=== PATIENT | male | born 1965 ===

== ENCOUNTER 2019-01-14 06:33 | Inpatient (IN) | payer OTHER ==
--- NOTE | 2018-12-28 09:17 | NUR ---
*-* CASE MANAGEMENT NOTES *-* DRAFTER ASSISTANT: NGUYEN HERNANDEZ (CONTACT FOR ADD'L DAY AND DISCHARGE PLANNING NEEDS). P:[phone] P:[phone]
[2019-01-07 13:02] LABS: BASOPHILS % (AUTO) 1.2 % (0.0-2.0); HEMATOCRIT 42.1 % (42.0-52.0); HEMOGLOBIN 13.9 G/DL (14.2-18.0); LYMPHOCYTES % (AUTO) 28.2 % (20.0-45.0); MEAN CORPUSCULAR VOLUME 90 FL (80-99); NEUTROPHILS % (AUTO) 59.5 % (45.0-75.0); PLATELET COUNT 274 K/UL (150-450); RED BLOOD COUNT 4.67 M/UL (4.70-6.10); RED CELL DISTRIBUTION WIDTH 13.2 % (11.6-14.8); WHITE BLOOD COUNT 7.3 K/UL (4.8-10.8)
[2019-01-07 13:27] LABS: ALANINE AMINOTRANSFERASE 15 U/L (12-78); ALBUMIN 4.4 G/DL (3.4-5.0); ALBUMIN/GLOBULIN RATIO 1.8 (1.0-2.7); ALKALINE PHOSPHATASE 81 U/L (46-116); ANION GAP 9 mmol/L (5-15); ASPARTATE AMINO TRANSFERASE 13 U/L (15-37); BILIRUBIN,TOTAL 0.8 MG/DL (0.2-1.0); BLOOD UREA NITROGEN 16 mg/dL (7-18); CALCIUM 9.5 MG/DL (8.5-10.1); CARBON DIOXIDE 28 MMOL/L (21-32); CHLORIDE 105 MMOL/L (98-107); CREATININE 1.5 MG/DL (0.55-1.30); SODIUM 142 MMOL/L (136-145)
[~2019-01-14] VITALS: Ht 165.1 cm; Wt 96.6 kg
[2019-01-14] VITALS (18 sets, daily range): BP systolic 115–132; BP diastolic 72–94
[2019-01-14] MEDS ORDERED: Duramorph PF 5mg/10ml amp ONE (07:07)
[2019-01-14] MEDS ORDERED: Midazolam 2mg/2ml Inj ONE (07:09)
[2019-01-14] MEDS ORDERED: fentaNYL 100 mcg/2 mL IV ONE ×2 (07:09→08:20)
--- NOTE | 2019-01-14 07:11 | Pre-Procedure Note/Attestation ---
Pre-Procedure Note/Attestation Complete Prior to Procedure Planned Procedure: right Procedure Narrative: For Right Total Knee Arthroplasty Indications for Procedure Pre-Operative Diagnosis: Degenerative Joint Disease, Right Knee Attestation I attest that I discussed the nature of the procedure; its benefits; risks and complications; and alternatives (and the risks and benefits of such alternatives ), prior to the procedure, with the patient (or the patient's legal customer development representative). I attest that, if there was a reasonable possibility of needing a blood transfusion, the patient (or the patient's legal customer development representative) was given the [facility] standardized written summary, pursuant to the [place] Blood Safety Act ([place] Health and Safety Code # 1645, as amended). I attest that I re-evaluated the patient just prior to the surgery and that there has been no change in the patient's H&P, except as documented below: Joseph Guerrero Jan 14, 2019 07:11
[2019-01-14] MEDS ORDERED: Bacitracin 50000 Units Vial ONE (07:12)
[2019-01-14] MEDS ORDERED: NeoSporin Gu Irrig 1ml Amp IRRIG ONE ×2 (07:12→08:42)
[2019-01-14] MEDS ORDERED: Propofol 200mg/20ml IV ONE (07:13)
[2019-01-14] MEDS ORDERED: Lidocaine 1% MPF 10mg/ml 5ml ONE (07:13)
[2019-01-14] MEDS ORDERED: OMEPRAZOLE40 M1 ORAL (07:14)
[2019-01-14] MEDS ORDERED: NORCO 5-325 TA1 EACH ORAL (07:14)
[2019-01-14] MEDS ORDERED: LISINOPRIL10 MG ORAL (07:14)
[2019-01-14] MEDS ORDERED: NS Irrig 1000ml IRRIG ONE ×3 (07:16→08:42)
[2019-01-14] MEDS ORDERED: Tranexamic Acid 1,000 MG in NS 55 ML IV ONE (07:30)
[2019-01-14] MEDS ORDERED: Sterile Water Irrig 1000ml IRRIG ONE (07:30)
[2019-01-14] MEDS ORDERED: NS Irrig 2000ml IRRIG ONE (07:30)
[2019-01-14] MEDS ORDERED: LR 1000ml ONE (07:30)
[2019-01-14] MEDS ORDERED: Bacitracin 50000 Units Vial IRRIG ONE (08:42)
[2019-01-14] MEDS ORDERED: Midazolam 2mg/2ml Inj IVP PRN (08:45)
[2019-01-14] MEDS ORDERED: Ketorolac 30mg Inj IV PRN (08:45)
[2019-01-14] MEDS ORDERED: Meperidine 50mg/ml Inj(FOR RIGORS ONLY) IV PRN (08:45)
[2019-01-14] MEDS ORDERED: DiphenhydrAMINE 50mg/ml Inj IVP PRN ×2 (08:45→11:15)
[2019-01-14] MEDS ORDERED: Hydromorphone 0.5mg/0.5ml inj IVP PRN (08:45)
[2019-01-14] MEDS ORDERED: LR 1000ml 1,000 ML IVLG SCH (08:45)
--- NOTE | 2019-01-14 08:45 | Anethesia Preoperative Eval ---
Anesthesia Pre-op PMH/ROS General Date of Evaluation: Jan 14, 2019 Time of Evaluation: 07:20 Anesthesiologist: Tori ASA Score: ASA 2 Mallampati Score Class I : Soft palate, uvula, fauces, pillars visible Class II: Soft palate, uvula, fauces visible Class III: Soft palate, base of uvula visible Class IV: Only hard plate visible Mallampati Classification: Class II Surgeon: Tobias Diagnosis: R knee DJD Surgical Procedure: R total knee arthroplasty Anesthesia History: none Family History: no anesthesia problems Allergies: Coded Allergies: No Known Allergies (Unverified , 01/11/19) Medications: see eMAR Patient NPO?: Yes NPO Date: Jan 13, 2019 NPO Time: 2358 Past Medical History Cardiovascular: Reports: HTN - stable on pills Pulmonary: Denies: asthma, COPD, LUIS, other Gastrointestinal/Genitourinary: Reports: GERD, CRI - high Cr follow up recomended; Denies: ESRD, other Neurologic/Psychiatric: Reports: depression/anxiety, other - chronic pain; Denies: dementia, CVA, TIA Endocrine: Denies: DM, hypothyroidism, steroids, other HEENT: Denies: cataract (L), cataract (R), glaucoma, TIMBI-SHA SHOSHONE (L), TIMBI-SHA SHOSHONE (R), other Hematology/Immune: Denies: anemia, DVT, bleeding disorder, other Musculoskeletal/Integumentary: Reports: DJD; Denies: OA, RA, DDD, edema, other Other: other - overweight PMH Narrative: as above PSxH Narrative: orchidectomy for testicular torsion, hernia repair, knee scope lumbar spine Sx. Anesthesia Pre-op Phys. Exam Physician Exam Last Vital Signs Date Time Temp Pulse Resp B/P (MAP) Pulse Ox O2 Delivery O2 Flow Rate FiO2 01/14/19 07:00 98.1 108 20 115/79 (91) 100 01/14/19 06:58 Room Air Constitutional: NAD Neurologic: CN 2-12 intact Cardiovascular: RRR, no M/R/G Respiratory: CTA Gastrointestinal: S/NT/ND Airway Exam Mallampati Score: Class II MO: limited Neck: short ROM: limited Teeth: missing Dentures: no upper, no lower Anesthesia Pre-op A/P Labs see chart Studies Pre-op Studies: EKG - NSR, CXR - WNL, echo - EF 55-60% Risk Assessment & Plan Assessment: ASA 2 Plan: SAB vs GA Status Change Before Surgery: No Pre-Antibiotics Drug: Ancef 2gr. Given Within 1 Hr of Incision: Yes Time Given: 08:20 Zeferino Valle MD Jan 14, 2019 08:45
[2019-01-14] MEDS ORDERED: Acetaminophen (Non formulary) 100 ML IV ONE (09:00)
[2019-01-14] MEDS ORDERED: HYDROmorphone 1mg/ml Carpuject SUBQ PRN (11:00)
[2019-01-14] MEDS ORDERED: HYDROcodone/Acetamin 7.5/325 tab ORAL PRN (11:00)
[2019-01-14] MEDS ORDERED: HYDROcodone/Acetamin 5/325 tab ORAL PRN ×2 (11:00→16:15)
--- NOTE | 2019-01-14 11:00 | Operative Note - PDOC ---
Operative Note Operative Note Pre-op Diagnosis: Degenerative Joint Disease, Right Knee Procedure: Right Total Knee Resurface Right Post-op Diagnosis: same as pre-op Operative Findings: consistent w/pre-op dx studies Surgeon: Tobias Front Office Supervisor: SIMA Guerrero Anesthesiologist: Tori Anesthesia: general Specimen: yes Complications: none Condition: stable Estimated Blood Loss: minimal Drains: hemovac Tourniquet time: 110 - min Implant(s) used?: Yes - Yenni Natural Knee Joseph Guerrero Jan 14, 2019 11:00
--- NOTE | 2019-01-14 11:01 | Immediate Post-Op Evaluation ---
Immediate Post-Op Evalulation Immediate Post-Op Evalulation Procedure: R total knee arthroplasty Date of Evaluation: Jan 14, 2019 Time of Evaluation: 11:00 IV Fluids: 1500 Blood Products: none Estimated Blood Loss: 150 Urinary Output: 100 Blood Pressure Systolic: 113 Blood Pressure Diastolic: 81 Pulse Rate: 102 Respiratory Rate: 22 O2 Sat by Pulse Oximetry: 99 Temperature (Fahrenheit): 98.2 Pain Score (1-10): 2 Nausea: No Vomiting: No Complications none Patient Status: reacts, patent, none Hydration Status: adequate Zeferino Valle MD Jan 14, 2019 11:01
[2019-01-14] MEDS ORDERED: PCA Education Pamphlet MISC SCH (11:15)
[2019-01-14] MEDS ORDERED: Naloxone 0.4mg/ml Inj IVP PRN (12:00)
[2019-01-14] MEDS ORDERED: Morphine Sulfate 2mg/ml Inj(IV/IM USE ONLY) IVP PRN (12:00)
[2019-01-14] MEDS ORDERED: Rate Change PCA 1 Each MISC PRN (12:00)
[2019-01-14] MEDS: PCA Morphine 1mg/ml 30 ML IV PRN ×2 (12:08→19:02)
--- NOTE | 2019-01-14 12:56 | NUR ---
NURSE NOTES: Received phone report from Adriana AUTOMOTIVE LIGHT MECHANIC.
[2019-01-14] MEDS: Docusate 100mg cap ORAL SCH ×2 (13:00→18:01)
[2019-01-14] MEDS: Acetaminophen 500mg (ES) tab ORAL SCH ×2 (13:00→18:01)
--- NOTE | 2019-01-14 13:05 | NUR ---
NURSE NOTES: Pt arrived the unit. Patient a/o x 4, in bed. Denies pain, no respiratory distress noted. Left wrist IV is patent. Right knee surgical site dressing is C/D/I. Ice pack applied. Hemovac is in placed. Unit orientation was given. Bed in lowest position and locked, call light within reach. Will continue to monitor.
--- NOTE | 2019-01-14 14:48 | NUR ---
CASE MANAGEMENT: INITIAL REVIEW 53 YO M PRESENTED TO HOSPITAL FOR SURGERY PMHx: HTN. ASTHMA. HERNIA. SI:PAIN RIGHT KNEE T 98.1 HR 108 RR 20 B/P 115/79 SATS 100% ON RA CR 1.5 GLU 117 AST 13 IS: OR MEDS PATIENT ADMITTED TO MED/SURG 01/14/2019 @ 1046 PLAN OF CARE: Operative Note Pre-op Diagnosis: Degenerative Joint Disease, Right Knee Procedure: Right Total Knee Resurface Right Post-op Diagnosis: same as pre-op
--- NOTE | 2019-01-14 14:56 | Diagnostic Imaging Report ---
Indications: Postoperative Technique: Two views of the knee Comparison: None Findings: Two postoperative views of the right knee demonstrate total knee arthroplasty, good anatomic alignment of the prosthesis. There is a surgical drain in place. . There is postsurgical soft tissue air. Overlying skin александр. Impression: Postoperative right knee, no unusual features.
[2019-01-14] MEDS: D5 1/2NS w/KCl 20mEq 1,000 ML IV SCH (15:21)
[2019-01-14] MEDS: ceFAZolin sod 1 GM in D5W 55 ML IV SCH ×2 (15:21→23:46)
--- NOTE | 2019-01-14 15:57 | NUR ---
NURSE NOTES: CPM started. Setting is 60. Patient is tolerating well.
--- NOTE | 2019-01-14 16:07 | NUR ---
NURSE NOTES: Dr. Stiles was notified regarding home meds. Dr. Stiles wants to continue [place] 5-325 q4 prn, Lisinopril 10mg daily, Omeprazole 40mg daily. Noted and carried out.
--- NOTE | 2019-01-14 16:45 | Operative Note - Dictated ---
DATE OF OPERATION: 01/14/2019 SURGEON: Joseph Collado M.D. ANESTHESIOLOGIST: Jovani Valle M.D. ANESTHESIA: General and spinal. RN ANESTHETIST: John Jaime PREOPERATIVE DIAGNOSIS: Tricompartmental traumatic arthritis right knee with significant varus weightbearing deformity and medial compartment joint space narrowing. POSTOPERATIVE DIAGNOSIS: Tricompartmental traumatic arthritis right knee with significant varus weightbearing deformity and medial compartment joint space narrowing. OPERATIVE PROCEDURE: Right knee resurfacing arthroplasty using a Yenni Natural Knee with a 0 cemented 7 mm all-polyethylene patella, a size 2 femoral component and a size 1 tibial component with a 9 mm congruent polyethylene and two 35 mm APR screws. The femoral and tibial components were both ingrowth. The procedure involved the lateral patellar retinacular release and realignment by ligament rebalancing. The patient was prepped and draped supine on the operating table. After induction of satisfactory spinal and general anesthesia, the right leg was positioned with a bolster behind the right hip to neutralize rotation of the knee. A bump was placed on the table to facilitate maintenance of the knee in flexion during procedure and a hip bump was used to prevent external rotation of the hip also during the procedure. The leg was examined with 10 degrees lacking in full extension and further flexion to 100 degrees. There was no ligamentous instability. No drawer and no Frantz's. No rotational instability. The patient was stable to varus and valgus stress. There was notable patellofemoral crepitus with moderate lateral patellar tracking. The leg was prepped and draped freely and then elevated and exsanguinated with an Esmarch bandage. A medial parapatellar incision was made along the distal quads expanse going along the medial border of the patella and inferior patella ligament to the tibial tuberosity. Incision was carried down through skin and subcutaneous tissue. The extensor apparatus was exposed. A medial capsular incision was made down to the tuberosity and through the distal quads tendon. Lateral retinacular release was accomplished so that the patella could be turned to 180 degrees exposing its articular surface. Remnants of the fat pad was removed and the anterior horn of both the medial and lateral meniscus was removed. The superficial medial collateral and posterior medial capsular ligaments were released to allow bouncing of the knee from its varus deformity. Also, the semimembranosus posteriorly was released from the tibia to facilitate extension. The patella was exposed. All the peripheral articular surfaces were defined by removing adherent surrounding synovium. The patella was sized and the minimal articular cut was made to leave most of the substance of the patella intact while creating a flat surface for implant of the polyethylene patella. A cutting jig was used and then 3 anchoring holes were made for a 0 all-poly patella. It was reduced and then checked for range of motion. The patella button was cemented in place with all excess cement removed after implants at the femoral and tibial components. The knee was then flexed and a bent knee retractor was used to pull the tibia floor to remove the remnants of the posterior horn of the medial lateral meniscus and to recess the PCL over the tibia on its lateral side. However, the main attachment of the PCL was left intact. The femoral medullary canal was then identified with a jig and an intramedullary herb was inserted. A cutting jig was then placed and weightbearing alignment of the hip and rotation were checked. The cut that was templated with the jig in place corresponded to that, which had been measured on the weightbearing x-rays prior to surgery. The distal cuff involved a little more medial than lateral. The anterior-posterior chamfer and notch cuts were then made. The trial femoral reduction revealed good contact on all cut surfaces with good stability and good alignment. Tibia was then subluxed forward and the tibial alignment jig was positioned. It was adjusted for weightbearing alignment and for slope as well as for varus and valgus. A measurement corresponded to the weightbearing x-ray was then chosen and the tibial cutting block was fixed over 2 drill holes and temporary pins. The proximal tibial cut was made with the appropriate slope and alignment taking a little more proximal tibia on the lateral side than medial. Once the cut surface was exposed, the trial tibia was placed and anchoring holes were made for the peripheral support and for the 2 central anchoring holes. The central punch was then used to create the cruciate support and a trial tibial component was then inserted along with a 9 mm polyethylene. This was templated with the femur in place and provided good stability, good range of motion, full extension, flexion to 110, good stability medial and lateral, and good patellar tracking. The tibial component was then tapped into place and 2 APR screws were used to secure it. Polyethylene was then inserted with no gap and the femoral component was also tapped into place. Again range of motion and stability were checked. The tourniquet was then released. Bleeders were coagulated. The medial capsule was closed with sutures of #1 Vicryl to the subcutaneous skin separately. The patient was placed in a bulky compression dressing and a medium Hemovac drain was left in the site of the lateral release, however, no suction was initially placed . The patient was returned to recovery room in good condition. Joseph Collado M.D. DR: CHINO JOB#: [id number] CC: KAYE
--- NOTE | 2019-01-14 18:55 | NUR ---
NURSE NOTES: Patient c/o pain on left knee, he is not tolerating. Removed CPM.
[2019-01-14] MEDS: PCA shift volume MISC SCH (19:00)
--- NOTE | 2019-01-14 19:48 | NUR ---
HAND-OFF: Report given to SHMUEL Guillen.
--- NOTE | 2019-01-14 20:00 | NUR ---
NURSE NOTES: Receive a report from SHMUEL Foley. Done rounds. Pt is asleep but easily awake by calling his name. On TURF AND GROUNDS SUPERVISOR, Morphine, for pain control. Right knee op site is wrapped with SHO without bleeding signs. Leave call light within reach. Will continue to monitor.
[2019-01-14] MEDS: oxyCONTIN 20mg tab ORAL SCH (20:30)
--- NOTE | 2019-01-14 21:30 | NUR ---
NURSE NOTES: Pt is asleep but easily aroused, alert. Breathing is even and non labored. BS sound intact 4 quadrants. Right knee pain persist but decrease after taking po medication a little bit. After administration of PRN Zofran 4mg IVP d/t nausea sense, pt feels better. Explain about S/E of [employer] medication. Pt verbalizes understanding. On horvath catheterization 16 fr. d/t op and patent with yellowish urine. Will continue to monitor.
[2019-01-15] VITALS: BP 95/60
--- NOTE | 2019-01-15 | NUR ---
NURSE NOTES: pt is asleep but easily awake, alert. Spo2 checked as 92% in RA. Lung sound is clear but decreased on both lower lung. Encourage to deep breathing and apply O2 2L/min via NC. Spo2 goes up to 95-96%. Keep Semi-Sheldon's position. BP: 95.60mmHg, SD: 109 bmp. No GUTIERREZ or dizziness noted. Op site is clear without bleeding signs. Hemovac inserted state and serosanguineous drainage drained. Will continue to monitor.
[2019-01-15 04:00] VITALS: BP 116/73
[2019-01-15] MEDS: D5 1/2NS w/KCl 20mEq 1,000 ML IV SCH (04:48)
--- NOTE | 2019-01-15 06:50 | NUR ---
NURSE NOTES: Nausea sensation gets better after prn Zofran 4mg IVP. Pain continue but intensity gets decreased than yesterday with GOLF STUD RIVETER, Morphine. Op site is clear without bleeding sign. Empty Hemovac total 190ml, bloody color drainage. Spo2 checked 97 % with O2 2L/min NC. Will continue to monitor.
[2019-01-15] MEDS: PCA shift volume MISC SCH ×2 (07:00→19:00)
[2019-01-15 07:12] LABS: BASOPHILS % (AUTO) 0.5 % (0.0-2.0); HEMATOCRIT 29.6 % (42.0-52.0); LYMPHOCYTES % (AUTO) 12.6 % (20.0-45.0); MEAN CORPUSCULAR VOLUME 91 FL (80-99); PLATELET COUNT 173 K/UL (150-450); RED BLOOD COUNT 3.25 M/UL (4.70-6.10)
--- NOTE | 2019-01-15 07:47 | NUR ---
HAND-OFF: Report given to SHMUEL Baker. Done rounds.
--- NOTE | 2019-01-15 07:50 | NUR ---
NURSE NOTES: Patient is in bed awake and able to verbalize needs. Stable. COmplains of pain, patient encouraged to use DOUGH PUNCHER as ordered. Patient is encouraged to use call light for assistance, verbalized understanding. Patient is in bed in locked and lowest position with call light within reach. Will continue to monitor.
[2019-01-15 08:00] VITALS: BP 112/73
[2019-01-15] MEDS: oxyCONTIN 20mg tab ORAL SCH ×2 (08:19→20:58)
[2019-01-15] MEDS: ceFAZolin sod 1 GM in D5W 55 ML IV SCH ×3 (08:19→23:48)
[2019-01-15] MEDS: Lisinopril 10mg tab ORAL SCH (08:19)
[2019-01-15] MEDS: Acetaminophen 500mg (ES) tab ORAL SCH ×3 (08:20→18:10)
[2019-01-15] MEDS: Docusate 100mg cap ORAL SCH ×3 (08:20→18:11)
--- NOTE | 2019-01-15 08:46 | General Progress Note ---
Assessment/Plan Assessment/Plan: Right knee resurfacing arthroplasty right knee arthritis postop pain PLAN 1. incentive spirometry 2. Lovenox 3. PT evaluation and therapy 4. Hydration 5. Pain management 6. discharge once stable with outpatient follow up Subjective Allergies: Coded Allergies: No Known Allergies (Unverified , 01/11/19) Subjective care noted asked to follow up post op Objective Last 24 Hour Vital Signs Date Time Temp Pulse Resp B/P (MAP) Pulse Ox O2 Delivery O2 Flow Rate FiO2 01/15/19 08:19 112/73 01/15/19 04:00 97.8 103 19 116/73 (87) 97 01/15/19 04:00 18 01/15/19 00:00 18 01/15/19 00:00 98.6 109 18 95/60 (72) 95 01/14/19 21:00 Room Air 01/14/19 20:00 97.6 93 18 127/88 (101) 96 01/14/19 20:00 18 01/14/19 16:35 98.2 79 20 117/72 (87) 97 01/14/19 16:00 18 01/14/19 15:35 97.1 93 19 130/93 (105) 97 01/14/19 14:35 98.7 94 18 131/94 (106) 100 01/14/19 13:35 97.2 95 21 132/89 (103) 96 01/14/19 13:05 97.6 99 18 127/80 (96) 100 01/14/19 13:00 98.6 95 19 131/85 100 Nasal Cannula 2.0 01/14/19 12:58 18 01/14/19 12:45 96 20 132/86 98 Nasal Cannula 2.0 01/14/19 12:38 98.6 01/14/19 12:30 98 19 123/84 98 Nasal Cannula 2.0 01/14/19 12:15 99 20 122/85 97 Nasal Cannula 2.0 01/14/19 12:00 97 19 119/86 97 Nasal Cannula 2.0 01/14/19 11:45 98 20 121/87 98 Nasal Cannula 2.0 01/14/19 11:30 99 18 132/84 100 Simple Mask 6.0 01/14/19 11:15 100 19 121/91 100 Simple Mask 6.0 01/14/19 11:06 102 20 130/88 100 Simple Mask 6.0 01/14/19 11:01 103 20 120/88 100 Simple Mask 6.0 01/14/19 11:01 102 22 99 01/14/19 10:56 98.7 104 22 120/83 100 Simple Mask 6.0 01/14/19 09:00 98.6 Intake and Output 01/14/19 01/15/19 19:00 07:00 Intake Total 1638 ml 1075 ml Output Total 690 ml 815 ml Balance 948 ml 260 ml Intake Oral 238 ml 200 ml IV Total 1400 ml 875 ml Output Urine Total 430 ml 625 ml Drainage Total 260 ml 190 ml # Voids 1 Laboratory Tests 01/15/19 05:20: White Blood Count 11.0H, Red Blood Count 3.25L, Hemoglobin 10.0L, Hematocrit 29.6L, Mean Corpuscular Volume 91, Mean Corpuscular Hemoglobin 31.0, Mean Corpuscular Hemoglobin Concent 33.9, Red Cell Distribution Width 13.0, Platelet Count 173, Mean Platelet Volume 6.3L, Neutrophils (%) (Auto) 74.0, Lymphocytes ( %) (Auto) 12.6L, Monocytes (%) (Auto) 11.0H, Eosinophils (%) (Auto) 2.0, Basophils (%) (Auto) 0.5 Height (Feet): 5 Height (Inches): 5.00 Weight (Pounds): 192 Objective WDWN NAD clear breath sounds bilaterally without rhonchi or wheeze [id number] without MRG NABS nontender no HSM no CCE nonfocal Raffi Stiles MD Jan 15, 2019 08:46
--- NOTE | 2019-01-15 09:00 | NUR ---
PT EVALUATION NOTE Patient seen for initial evaluation, see complete evaluation for details. Patient presents with limited functional mobility and pain s/p R TKA. Patient will benefit from skilled inpatient PT intervention to address strength, ROM, safety and functional mobility with appropriate assistive device. Recommend discharge to SNF for further rehab vs home with home PT depending on patient's progress once medically cleared by MD. Patient lives in second floor apartment, has 12-14 stairs to negotiate to access apartment. Patient has FWW at home, may also benefit from raised toilet seat. Addendum: 01/15/19 at 0955 by SPENCER SHIELDS PT Amended: Links added.
--- NOTE | 2019-01-15 09:04 | 48 Hour Post Anesthesia Eval ---
Post Anesthesia Evaluation Procedure: R total knee arthroplasty Date of Evaluation: Jan 15, 2019 Time of Evaluation: 09:02 Blood Pressure Systolic: 125 0: 76 Pulse Rate: 72 Respiratory Rate: 22 Temperature (Fahrenheit): 97.7 O2 Sat by Pulse Oximetry: 98 Airway: patent Nausea: No Vomiting: No Pain Intensity: 3 Hydration Status: adequate Cardiopulmonary Status: stable Mental Status/LOC: patient returned to baseline Follow-up Care/Observations: n/a Post-Anesthesia Complications: none Follow-up care needed: N/A Zeferino Valle MD Jan 15, 2019 09:04
[2019-01-15] MEDS: Enoxaparin 40mg Inj SUBQ SCH (09:20)
[2019-01-15 11:50] VITALS: BP 111/73
--- NOTE | 2019-01-15 12:42 | NUR ---
CASE MANAGEMENT:REVIEW 01/15/19 SI: POD #1 RT KNEE RESURFACING ARTHROPLASTY 99.8 126 18 112/73 98% ON RA WBC+11.0 H/H-10.0/29.6 IS: IV ANCEF Q8HRS LISINOPRIL PO QD IV ANCEF Q8HR MORPHINE LIP CUTTER AND SCORER : MED/SURG STATUS 3 EAST PLAN: REFER TO ACUTE REHAB FOR RECOVERY
--- NOTE | 2019-01-15 12:51 | NUR ---
DISCHARGE PLANNING CALLED FIBERGLASS FABRICATOR: NGUYEN HERNANDEZ P:[phone] P:[phone] REQUESTED ARU PLACEMENT RFA FORM FAXED TO JOSEFA FROM DR GAFFENY'S OFFICE WILL PROBABLY TAKE A DAY OR TWO FOR APPROVAL *WHEN [employer] GOES OUT OF TOWN PLEASE CONTACT BELKIS T: [phone]
--- NOTE | 2019-01-15 15:46 | NUR ---
INSURANCE UPDATED CLINICALS and REVIEW HAVE BEEN FAXED PLEASE FAX THE REVIEW AND CLINICAL TO CALLED MILK RECEIVER: NGUYEN HERNANDEZ P:[phone] P:[phone] F: [phone]
[2019-01-15 16:14] VITALS: BP 89/52
--- NOTE | 2019-01-15 17:29 | NUR ---
NURSE NOTES: F/C d/c as ordered. tolerated well. Patient verbalized that he will call RN when needing to void.
--- NOTE | 2019-01-15 17:30 | NUR ---
HAND-OFF: Report given to Mya MI. Patient is stable.
--- NOTE | 2019-01-15 17:45 | NUR ---
NURSE NOTES: Received report from Olivia MI. Patient is awake and oriented, no acute distress noted, reporting pain is well managed at this time, VOCATIONAL ED INSTRUCTOR settings checked and verified against order, hemovac compressed. All needs met at this time. Will continue to monitor.
--- NOTE | 2019-01-15 19:30 | NUR ---
HAND-OFF: Report given to Florentino MI. Patient is in stable condition.
--- NOTE | 2019-01-15 19:30 | NUR ---
NURSE NOTES: Endorsed to cutting supervisor nurse that patient has not yet voided following horvath removal.
[2019-01-15] MEDS: PCA Morphine 1mg/ml 30 ML IV PRN (19:44)
[2019-01-15 20:00] VITALS: BP 87/55
--- NOTE | 2019-01-15 20:08 | NUR ---
NURSE NOTES: Received patient awake,alert, verbal,resting in bed, wound dressing dry and intact with esther wrap on.
[2019-01-16 04:00] VITALS: BP 89/48
[2019-01-16] MEDS: PCA shift volume MISC SCH (07:05)
--- NOTE | 2019-01-16 07:23 | NUR ---
HAND-OFF: Report given to Olivia Adrian RN.
[2019-01-16 07:24] LABS: BASOPHILS % (AUTO) 0.4 % (0.0-2.0); EOSINOPHILS % (AUTO) 1.7 % (0.0-3.0); HEMATOCRIT 25.2 % (42.0-52.0); HEMOGLOBIN 8.7 G/DL (14.2-18.0); LYMPHOCYTES % (AUTO) 9.5 % (20.0-45.0); MEAN CORPUSCULAR VOLUME 91 FL (80-99); MONOCYTES % (AUTO) 8.9 % (1.0-10.0); NEUTROPHILS % (AUTO) 79.5 % (45.0-75.0); PLATELET COUNT 173 K/UL (150-450); RED BLOOD COUNT 2.77 M/UL (4.70-6.10); RED CELL DISTRIBUTION WIDTH 13.2 % (11.6-14.8); WHITE BLOOD COUNT 15.1 K/UL (4.8-10.8)
--- NOTE | 2019-01-16 07:30 | NUR ---
NURSE NOTES: Patient is in bed awake and able to verbalize needs. Stable. Denies severe pain, patient verbalized that he will use INSPECTOR WEIGHTS AND MEASURES as needed. Patient encouraged to use call light for assistance, verbalized understanding. Patient is in bed in locked and lowest position with call light within reach. Will continue to monitor.
[2019-01-16 08:00] VITALS: BP 77/48
[2019-01-16] MEDS: ceFAZolin sod 1 GM in D5W 55 ML IV SCH ×3 (08:21→23:44)
[2019-01-16] MEDS: Enoxaparin 40mg Inj SUBQ SCH (08:23)
[2019-01-16] MEDS: Acetaminophen 500mg (ES) tab ORAL SCH ×3 (08:24→17:58)
[2019-01-16] MEDS: oxyCONTIN 20mg tab ORAL SCH ×2 (08:24→21:10)
[2019-01-16] MEDS: Docusate 100mg cap ORAL SCH ×3 (08:25→17:58)
[2019-01-16] MEDS: Lisinopril 10mg tab ORAL SCH (08:57)
--- NOTE | 2019-01-16 09:15 | NUR ---
NURSE NOTES: Patient's bp is 77/48, pulse 119. Dr. Stiles aware. 1L NS bolus running as ordered. Patient is stable.
--- NOTE | 2019-01-16 09:53 | NUR ---
CASE MANAGEMENT:REVIEW 01/16/19 SI: POD #2 RT KNEE RESURFACING ARTHROPLASTY 99.1 100 18 89/48 92% ON RA WBC+15.1 H/H-8.7/25.2 IS: IV ANCEF Q8HRS LISINOPRIL PO QD IV ANCEF Q8HR MORPHINE HOME ECONOMIST LOVENOX : MED/SURG STATUS 3 EAST PLAN: REFER TO ACUTE REHAB FOR RECOVERY
--- NOTE | 2019-01-16 10:20 | General Progress Note ---
Assessment/Plan Assessment/Plan: Right knee resurfacing arthroplasty right knee arthritis postop pain PLAN 1. incentive spirometry 2. Lovenox 3. PT evaluation and therapy 4. Hydration; bolus; hold antihypertensives 5. Pain management 6. discharge once stable with outpatient follow up Subjective Allergies: Coded Allergies: No Known Allergies (Unverified , 01/11/19) Subjective care noted hypotensive this am Objective Last 24 Hour Vital Signs Date Time Temp Pulse Resp B/P (MAP) Pulse Ox O2 Delivery O2 Flow Rate FiO2 01/16/19 04:00 99.1 100 18 89/48 (62) 92 01/16/19 04:00 18 01/16/19 00:00 16 01/15/19 21:28 98.6 01/15/19 21:20 Room Air 01/15/19 20:14 98.6 01/15/19 20:00 98.6 105 18 87/55 (66) 95 01/15/19 19:51 18 01/15/19 16:14 98.6 105 18 89/52 (64) 97 01/15/19 16:00 18 01/15/19 12:00 18 01/15/19 11:50 98.5 100 18 111/73 (86) 96 Intake and Output 01/15/19 01/16/19 19:00 07:00 Intake Total 620 ml 455 ml Output Total 770 ml 25 ml Balance -150 ml 430 ml Intake Oral 620 ml 400 ml IV Total 55 ml Output Urine Total 700 ml Drainage Total 70 ml 25 ml # Voids 4 Laboratory Tests 01/16/19 05:41: White Blood Count 15.1H, Red Blood Count 2.77L, Hemoglobin 8.7L, Hematocrit 25.2L, Mean Corpuscular Volume 91, Mean Corpuscular Hemoglobin 31.3H, Mean Corpuscular Hemoglobin Concent 34.4, Red Cell Distribution Width 13.2, Platelet Count 173, Mean Platelet Volume 6.8, Neutrophils (%) (Auto) 79.5H, Lymphocytes ( %) (Auto) 9.5L, Monocytes (%) (Auto) 8.9, Eosinophils (%) (Auto) 1.7, Basophils (%) (Auto) 0.4 Height (Feet): 5 Height (Inches): 5.00 Weight (Pounds): 220 Objective WDWN NAD clear breath sounds bilaterally without rhonchi or wheeze [id number] without MRG NABS nontender no HSM no CCE nonfocal Raffi Stiles MD Jan 16, 2019 10:20
[2019-01-16 12:00] VITALS: BP 104/69
--- NOTE | 2019-01-16 13:30 | NUR ---
NURSE NOTES: Patient no longer on PERMASTONE MECHANIC. Remaining medication and tubing returned to pharmacist Nikita.
--- NOTE | 2019-01-16 14:58 | General Surgery Progress Note ---
General Surgery-Progress Note Subjective Procedure Performed Right Total Knee Resurface Right Symptoms: improved Objective Last 24 Hour Vital Signs Date Time Temp Pulse Resp B/P (MAP) Pulse Ox O2 Delivery O2 Flow Rate FiO2 01/16/19 12:00 18 01/16/19 12:00 99.9 113 16 104/69 (81) 93 01/16/19 09:00 Room Air 01/16/19 08:00 99.9 119 18 77/48 (58) 94 01/16/19 08:00 18 01/16/19 04:00 99.1 100 18 89/48 (62) 92 01/16/19 04:00 18 01/16/19 00:00 16 01/15/19 21:28 98.6 01/15/19 21:20 Room Air 01/15/19 20:14 98.6 01/15/19 20:00 98.6 105 18 87/55 (66) 95 01/15/19 19:51 18 01/15/19 16:14 98.6 105 18 89/52 (64) 97 01/15/19 16:00 18 I&O Intake and Output 01/15/19 01/16/19 19:00 07:00 Intake Total 620 ml 455 ml Output Total 770 ml 25 ml Balance -150 ml 430 ml Intake Oral 620 ml 400 ml IV Total 55 ml Output Urine Total 700 ml Drainage Total 70 ml 25 ml # Voids 4 Dressing: dry Wound: clean Drains: hemovac Laboratory Tests Test 01/16/19 05:41 White Blood Count 15.1 K/UL (4.8-10.8) H Red Blood Count 2.77 M/UL (4.70-6.10) L Hemoglobin 8.7 G/DL (14.2-18.0) L Hematocrit 25.2 % (42.0-52.0) L Mean Corpuscular Volume 91 FL (80-99) Mean Corpuscular Hemoglobin 31.3 PG (27.0-31.0) H Mean Corpuscular Hemoglobin Concent 34.4 G/DL (32.0-36.0) Red Cell Distribution Width 13.2 % (11.6-14.8) Platelet Count 173 K/UL (150-450) Mean Platelet Volume 6.8 FL (6.5-10.1) Neutrophils (%) (Auto) 79.5 % (45.0-75.0) H Lymphocytes (%) (Auto) 9.5 % (20.0-45.0) L Monocytes (%) (Auto) 8.9 % (1.0-10.0) Eosinophils (%) (Auto) 1.7 % (0.0-3.0) Basophils (%) (Auto) 0.4 % (0.0-2.0) Imaging X-ray Post Op Right knee: good position of implants Additional Comments wound clean and dry drain output decreasing Assessment Additional Comments PT/OT working with patient. Dr. Stiles following. Patient has NO stable living arrangements and will need Rehab and possible temporary housing to [facility]. Park Aide and our office working on this. Joseph Guerrero Jan 16, 2019 14:58
[2019-01-16 16:00] VITALS: BP 99/55
--- NOTE | 2019-01-16 19:30 | NUR ---
NURSE NOTES: Patient refused CPM. Patient stated that he will try to do it tomorrow.
--- NOTE | 2019-01-16 19:40 | NUR ---
NURSE NOTES: Received report from SHMUEL Baker and rounds made with out going nurse. Received pt lying in bed, AOX4, pain level 7/10, pain medication not yet due. Surgical dressing C/D/I. Hemovac inplace with serosangenous drainage. Applied ice pack to surgical site. IV L wrist patent and intact. Pt refused SCD. Bed in lowest position and locked, side rails up x 2, call light within reach. Will continue to monitor.
--- NOTE | 2019-01-16 19:52 | NUR ---
HAND-OFF: Report given to Andry MI. Patient is stable.
[2019-01-16 20:00] VITALS: BP 96/61
[2019-01-17] VITALS (7 sets, daily range): BP systolic 88–110; BP diastolic 54–71
[2019-01-17 06:37] LABS: BASOPHILS % (AUTO) 0.5 % (0.0-2.0); EOSINOPHILS % (AUTO) 2.3 % (0.0-3.0); HEMATOCRIT 23.8 % (42.0-52.0); HEMOGLOBIN 8.1 G/DL (14.2-18.0); LYMPHOCYTES % (AUTO) 11.1 % (20.0-45.0); MEAN CORPUSCULAR VOLUME 91 FL (80-99); MONOCYTES % (AUTO) 9.7 % (1.0-10.0); NEUTROPHILS % (AUTO) 76.5 % (45.0-75.0); PLATELET COUNT 184 K/UL (150-450); RED BLOOD COUNT 2.62 M/UL (4.70-6.10); RED CELL DISTRIBUTION WIDTH 12.9 % (11.6-14.8); WHITE BLOOD COUNT 12.6 K/UL (4.8-10.8)
[2019-01-17 06:57] LABS: ANION GAP 8 mmol/L (5-15); BLOOD UREA NITROGEN 19 mg/dL (7-18); CALCIUM 8.2 MG/DL (8.5-10.1); CARBON DIOXIDE 25 MMOL/L (21-32); CHLORIDE 106 MMOL/L (98-107); CREATININE 1.5 MG/DL (0.55-1.30); POTASSIUM 4.3 MMOL/L (3.5-5.1); SODIUM 139 MMOL/L (136-145)
--- NOTE | 2019-01-17 07:15 | NUR ---
NURSE NOTES: Report received from Andry Hoskins RN, rounds made. Patient resting in supine position in bed. Alert, oriented x4, calm. LW heplock intact. Pain to right knee 01/09, will medicate as ordered. No distress on RA. CMS + to RLE, warm, wiggles, +1 pitting edema noted, no NT, dressing CDI, hemovac in place. Call light in reach, bed in lowest position, will continue to monitor. Addendum: 01/17/19 at 0902 by Cherrie Morales RN Ice pack to right knee as ordered.
--- NOTE | 2019-01-17 07:29 | NUR ---
HAND-OFF: Report given to SHMUEL Grier. Pt in stable condition.
[2019-01-17] MEDS: ceFAZolin sod 1 GM in D5W 55 ML IV SCH (08:39)
[2019-01-17] MEDS: Docusate 100mg cap ORAL SCH ×3 (08:42→18:52)
[2019-01-17] MEDS: Enoxaparin 40mg Inj SUBQ SCH (08:43)
[2019-01-17] MEDS: Acetaminophen 500mg (ES) tab ORAL SCH ×3 (08:46→18:52)
[2019-01-17] MEDS: oxyCONTIN 20mg tab ORAL SCH ×2 (08:47→21:17)
[2019-01-17] MEDS: Lisinopril 10mg tab ORAL SCH (08:47)
--- NOTE | 2019-01-17 09:11 | General Progress Note ---
Assessment/Plan Assessment/Plan: Right knee resurfacing arthroplasty right knee arthritis postop pain post op anemia mild renal insufficiency PLAN 1. incentive spirometry 2. Lovenox 3. PT evaluation and therapy 4. Hydration; bolus; hold antihypertensives 5. Pain management 6. discharge once stable with outpatient follow up 7. iv iron Subjective Allergies: Coded Allergies: No Known Allergies (Unverified , 01/11/19) Subjective care noted improved hemodynamics Objective Last 24 Hour Vital Signs Date Time Temp Pulse Resp B/P (MAP) Pulse Ox O2 Delivery O2 Flow Rate FiO2 01/17/19 08:47 89/55 01/17/19 08:40 128 89/55 (66) 01/17/19 08:00 99.4 120 18 103/64 (77) 94 01/17/19 04:00 98.7 71 16 88/59 (69) 98 01/17/19 00:00 98.4 77 16 88/54 (65) 100 01/16/19 21:00 Room Air 01/16/19 20:00 100.4 108 16 96/61 (73) 94 01/16/19 16:00 97.9 123 18 99/55 (70) 100 01/16/19 12:00 18 01/16/19 12:00 99.9 113 16 104/69 (81) 93 Intake and Output 01/16/19 01/17/19 19:00 07:00 Intake Total 55 ml Output Total 10 ml 2115 ml Balance -10 ml -2060 ml IV Total 55 ml Output Urine Total 2100 ml Drainage Total 10 ml 15 ml # Voids 2 Laboratory Tests 01/17/19 05:45: White Blood Count 12.6H, Red Blood Count 2.62L, Hemoglobin 8.1L, Hematocrit 23.8L, Mean Corpuscular Volume 91, Mean Corpuscular Hemoglobin 30.8, Mean Corpuscular Hemoglobin Concent 34.0, Red Cell Distribution Width 12.9, Platelet Count 184, Mean Platelet Volume 5.5L, Neutrophils (%) (Auto) 76.5H, Lymphocytes (%) (Auto) 11.1L, Monocytes (%) (Auto) 9.7, Eosinophils (%) (Auto) 2.3, Basophils (%) (Auto) 0.5, Sodium Level 139, Potassium Level 4.3, Chloride Level 106, Carbon Dioxide Level 25, Anion Gap 8, Blood Urea Nitrogen 19H, Creatinine 1.5H, Estimat Glomerular Filtration Rate 49.1, Glucose Level 101, Calcium Level 8.2L Height (Feet): 5 Height (Inches): 5.00 Weight (Pounds): 220 Objective WDWN NAD clear breath sounds bilaterally without rhonchi or wheeze [id number] without MRG NABS nontender no HSM no CCE nonfocal Raffi Stiles MD Jan 17, 2019 09:11
[2019-01-17 10:10] LABS: % IRON SATURATION 9 % (15-50); IRON 19 ug/dL (50-175); TOTAL IRON BINDING CAPACITY 203 ug/dL (250-450)
[2019-01-17 10:31] LABS: FERRITIN 188 NG/ML (8-388)
--- NOTE | 2019-01-17 10:54 | General Surgery Progress Note ---
General Surgery-Progress Note Subjective Procedure Performed Right Total Knee Resurface Right Symptoms: improved Objective Last 24 Hour Vital Signs Date Time Temp Pulse Resp B/P (MAP) Pulse Ox O2 Delivery O2 Flow Rate FiO2 01/17/19 08:47 89/55 01/17/19 08:40 128 89/55 (66) 01/17/19 08:00 99.4 120 18 103/64 (77) 94 01/17/19 04:00 98.7 71 16 88/59 (69) 98 01/17/19 00:00 98.4 77 16 88/54 (65) 100 01/16/19 21:00 Room Air 01/16/19 20:00 100.4 108 16 96/61 (73) 94 01/16/19 16:00 97.9 123 18 99/55 (70) 100 01/16/19 12:00 18 01/16/19 12:00 99.9 113 16 104/69 (81) 93 I&O Intake and Output 01/16/19 01/17/19 19:00 07:00 Intake Total 55 ml Output Total 10 ml 2115 ml Balance -10 ml -2060 ml IV Total 55 ml Output Urine Total 2100 ml Drainage Total 10 ml 15 ml # Voids 2 Dressing: dry Wound: clean Drains: hemovac Laboratory Tests Test 01/17/19 05:45 White Blood Count 12.6 K/UL (4.8-10.8) H Red Blood Count 2.62 M/UL (4.70-6.10) L Hemoglobin 8.1 G/DL (14.2-18.0) L Hematocrit 23.8 % (42.0-52.0) L Mean Corpuscular Volume 91 FL (80-99) Mean Corpuscular Hemoglobin 30.8 PG (27.0-31.0) Mean Corpuscular Hemoglobin Concent 34.0 G/DL (32.0-36.0) Red Cell Distribution Width 12.9 % (11.6-14.8) Platelet Count 184 K/UL (150-450) Mean Platelet Volume 5.5 FL (6.5-10.1) L Neutrophils (%) (Auto) 76.5 % (45.0-75.0) H Lymphocytes (%) (Auto) 11.1 % (20.0-45.0) L Monocytes (%) (Auto) 9.7 % (1.0-10.0) Eosinophils (%) (Auto) 2.3 % (0.0-3.0) Basophils (%) (Auto) 0.5 % (0.0-2.0) Sodium Level 139 MMOL/L (136-145) Potassium Level 4.3 MMOL/L (3.5-5.1) Chloride Level 106 MMOL/L (98-107) Carbon Dioxide Level 25 MMOL/L (21-32) Anion Gap 8 mmol/L (5-15) Blood Urea Nitrogen 19 mg/dL (7-18) H Creatinine 1.5 MG/DL (0.55-1.30) H Estimat Glomerular Filtration Rate 49.1 mL/min (>60) Glucose Level 101 MG/DL (74-106) Calcium Level 8.2 MG/DL (8.5-10.1) L Iron Level 19 ug/dL (50-175) L Total Iron Binding Capacity 203 ug/dL (250-450) L Percent Iron Saturation 9 % (15-50) L Unsaturated Iron Binding 184 ug/dL (112-346) Ferritin 188 NG/ML (8-388) Additional Comments drain removed today, october D/C Ancef. slow progress with PT / OT Dr. Stiles following, Assessment Post-op Diagnosis Patient is NOT able to discharge to home. He has No Stable housing to recover in. Needs Rehab and possible temporary housing. Request kaitlynn to insurance carrier 7 Joseph Guerrero Jan 17, 2019 10:54
--- NOTE | 2019-01-17 13:24 | NUR ---
DISCHARGE PLANNING SECOND CALL PLACED TO COVERING COMMODITY MANAGER, GUY T: [phone] *REQUESTED AR RETURN PHONE CALL YESTERDAY AND AGAIN TODAY NEED APPROVAL FOR ACUTE REHAB CALLED COMMODITY MANAGER: NGUYEN HERNANDEZ P:[phone] P:[phone] REQUESTED ARU PLACEMENT RFA FORM FAXED TO COMMODITY MANAGER FROM DR GAFFNEY'S OFFICE WILL PROBABLY TAKE A DAY OR TWO FOR APPROVAL *WHEN [employer] GOES OUT OF TOWN PLEASE CONTACT GUY T: [phone]
--- NOTE | 2019-01-17 13:27 | NUR ---
CASE MANAGEMENT:REVIEW 01/17/19 SI: POD #3 RT KNEE RESURFACING ARTHROPLASTY 99.4 120 18 99/66 95% ON RA WBC+12.6 H/H-8.1/23.8 BUN+19 CR+1.5 IS: IV VENOFER QHS PROTONIX PO QD LOVENOX SQ QD OXYCONTIN PO Q12 : MED/SURG STATUS 3 [facility] PLAN: REFER TO ACUTE REHAB FOR RECOVERY TWO MESSAGES LEFT FOR EDUCATION SALES CONSULTANT CASE MANAGEMENT:REVIEW 01/16/19 SI: POD #2 RT KNEE RESURFACING ARTHROPLASTY 99.1 100 18 89/48 92% ON RA WBC+15.1 H/H-8.7/25.2 IS: IV ANCEF Q8HRS LISINOPRIL PO QD IV ANCEF Q8HR MORPHINE ADULT EDUCATION PROFESSIONAL LOVENOX : MED/SURG STATUS 3 [facility] PLAN: REFER TO ACUTE REHAB FOR RECOVERY RFA WAS COMPLETED AND FAXED ON Monday01/14/19 TWO MESSAGES LEFT FOR EDUCATION SALES CONSULTANT, GUY T: [phone]
--- NOTE | 2019-01-17 13:30 | NUR ---
PT NOTE Attempted to see patient for PT treatment. Patient declining to participate with PT, c/o not feeling well. Cherrie MI notified, will follow up in the a.m.
--- NOTE | 2019-01-17 13:50 | NUR ---
NURSE NOTES: Dr. Thompson notified of low blood pressure and high heart rate readings. This AM 89/55 128 Prior to PT 107/72 135 After PT 106/71 136 93% on RA At 12 p 99/66 116 Parameters for Zestril received, see updated order.
[2019-01-17] MEDS ORDERED: NS 500ML ONE (17:26)
--- NOTE | 2019-01-17 19:55 | NUR ---
HAND-OFF: Report given to Andry Hoskins RN.
--- NOTE | 2019-01-17 20:48 | NUR ---
NURSE NOTES: Received report SHMUEL Grier and rounds made with outgoing nurse. Received pt lying in bed, AOX4, pain level 5/10, pain medication not yet due, no distress noted. R knee dressing C/D/I. IV L wrist patent and intact. Bed in lowest position and locked, side rails up x 2, call light within reach. Will continue to monitor.
[2019-01-17] MEDS: Iron Sucrose 100 MG in NS 55 ML IV SCH (21:09)
[2019-01-18] VITALS: BP 130/74
[2019-01-18 05:35] VITALS: BP 103/64
--- NOTE | 2019-01-18 06:11 | NUR ---
NURSE NOTES: Refused dressing change to right knee. Pt states "I want it done after breakfast". Will endorse to next nurse.
--- NOTE | 2019-01-18 07:10 | NUR ---
NURSE NOTES: Report received from Andry Hoskins RN, rounds made. Patient resting in supine position in bed. Patient alert, oriented x4 calm, no distress on RA, pain 7/10 to right knee, ice pack in place, will medicate as scheduled. LW heplock intact. Right knee dressing esther wrap, CDI, will change as ordered. Call light in reach, bed in lowest position, will continue to monitor.
--- NOTE | 2019-01-18 07:38 | NUR ---
HAND-OFF: Report given to SHMUEL Grier. Pt in stable condition.
[2019-01-18 08:00] VITALS: BP 98/59
[2019-01-18] MEDS: Lisinopril 10mg tab ORAL SCH (09:00)
[2019-01-18] MEDS: Docusate 100mg cap ORAL SCH ×3 (10:42→19:05)
[2019-01-18] MEDS: Enoxaparin 40mg Inj SUBQ SCH (10:43)
[2019-01-18] MEDS: Acetaminophen 500mg (ES) tab ORAL SCH ×3 (10:44→19:05)
[2019-01-18] MEDS: oxyCONTIN 20mg tab ORAL SCH ×2 (10:46→21:07)
--- NOTE | 2019-01-18 10:56 | NUR ---
CASE MANAGEMENT:REVIEW 01/18/19 SI: POD #4 RT KNEE RESURFACING ARTHROPLASTY 99..6 124 19 98/59 100% ON RA IS: IV VENOFER QHS PROTONIX PO QD LOVENOX SQ QD OXYCONTIN PO Q12 : MED/SURG STATUS 3 [facility] PLAN: PLAN IS FOR PATIENT TO DISCHARGE TO REHAB FACILITY RFA HAS BEEN FAXED.SPOKE WITH GUY YESTERDAY...WAITING FOR AUTHORIZATION FAXED CLINICALS TO [facility]
--- NOTE | 2019-01-18 11:23 | NUR ---
DISCHARGE PLANNING RFA WAS RECEIVED WAITING FOR AUTHORIZATION FOR REHAB CLINICALS FAXED TO [facility]
[2019-01-18 12:00] VITALS: BP 107/67
--- NOTE | 2019-01-18 13:43 | NUR ---
*-* INSURANCE *-* UPDATED CLINICALS AND REVIEWS HAVE BEEN FAXED CALLED SAMPLE SUPERVISOR: NGUYEN HERNANDEZ P:[phone] P:[phone] F: [phone]
[2019-01-18] MEDS ORDERED: Tubing IV Secondary IV ONE (15:04)
--- NOTE | 2019-01-18 15:46 | General Progress Note ---
Assessment/Plan Assessment/Plan: Right knee resurfacing arthroplasty right knee arthritis postop pain post op anemia mild renal insufficiency PLAN 1. incentive spirometry 2. Lovenox 3. PT evaluation and therapy 4. Hydration; bolus; hold antihypertensives 5. Pain management 6. discharge planned to rehab pending approval 7. iv iron Subjective Allergies: Coded Allergies: No Known Allergies (Unverified , 01/11/19) Subjective care noted stable hemodynamics Objective Last 24 Hour Vital Signs Date Time Temp Pulse Resp B/P (MAP) Pulse Ox O2 Delivery O2 Flow Rate FiO2 01/18/19 12:00 98.0 118 19 107/67 (80) 100 01/18/19 09:00 Room Air 01/18/19 09:00 98/59 01/18/19 08:00 98.2 124 19 98/59 (72) 100 01/18/19 05:35 99.6 109 18 103/64 (77) 97 01/18/19 00:00 97.8 70 18 130/74 (92) 98 01/17/19 21:00 Room Air 01/17/19 20:00 97.6 115 16 110/71 (84) 93 01/17/19 16:00 98.0 107 18 91/60 (70) 95 Intake and Output 01/17/19 01/18/19 19:00 07:00 Intake Total 958 ml 660 ml Output Total 1575 ml 3000 ml Balance -617 ml -2340 ml Intake Oral 958 ml 600 ml IV Total 60 ml Output Urine Total 1575 ml 1500 ml Stool Total 1500 ml # Voids 4 Height (Feet): 5 Height (Inches): 5.00 Weight (Pounds): 220 Objective WDWN NAD clear breath sounds bilaterally without rhonchi or wheeze [id number] without MRG NABS nontender no HSM no CCE nonfocal Raffi Stiles MD Jan 18, 2019 15:46
[2019-01-18 16:00] VITALS: BP 104/63
--- NOTE | 2019-01-18 16:00 | NUR ---
NURSE NOTES: Patient up ambulated in halls with PT x2, on CPM 0-70 degrees for 2 hours, tolerated well, pain 7-9/10. Dressing changed, dry sterile dressing with tegederm, александр and xeroform noted, intact, mild swelling/bruising, warmth. Ice pack applied top and bottom. Will continue to monitor.
--- NOTE | 2019-01-18 18:41 | NUR ---
HOMELESS COORDINATOR HC spoke with patient and patient is alert and oriented. Patient states he is chronically homeless and living in his car. Patient results his homelessness to trouble with his marriage. Awaiting Auth for workers comp for snf placement. Patient continues to require medical intervention. Will continue to monitor and assist as needed.
--- NOTE | 2019-01-18 18:45 | NUR ---
HOMELESS COORDINATOR tried to reach Mental Health Worker (Hugo) who is currently still on vacation. HC was able to speak with Marge Gus [phone], she stated she will apply for emergency IHP bed located at different long term today, and will follow-up with me Monday about approval. Patient continues to require medical intervention. Will continue to monitor and assist as needed.
--- NOTE | 2019-01-18 19:30 | NUR ---
HAND-OFF: Report given to Sharron FINN.
--- NOTE | 2019-01-18 19:38 | NUR ---
HAND-OFF: Report given to Tavo Young Patient in stable condition.
[2019-01-18 20:00] VITALS: BP 91/57
[2019-01-18] MEDS: Iron Sucrose 100 MG in NS 55 ML IV SCH (21:07)
[2019-01-19] VITALS (7 sets, daily range): BP systolic 98–116; BP diastolic 60–73
--- NOTE | 2019-01-19 07:45 | NUR ---
NURSE NOTES: Report received from Tavo RN, rounds made. Patient sleeping (awakes easily to name) in supine position in bed, no distress on RA. Right knee dressing CDI, no drainage or bleeding noted. Ice pack applied to top and bottom of right knee. Pain to right knee /10, will medicate as ordered. CMS +, skin warm, wiggles, no NT, hand grasps/pedal pushes intact, 3/5 to RLE. LW heplock intact. Call light in reach, bed in lowest position, will continue to monitor.
--- NOTE | 2019-01-19 07:49 | NUR ---
GAYATRI Aldridge RN Addendum: 01/19/19 at 0750 by SHREYAS LUGO RN HAND-OFF: Report given to GAYATRI Aldridge RN.
[2019-01-19] MEDS: Enoxaparin 40mg Inj SUBQ SCH (09:49)
[2019-01-19] MEDS: Docusate 100mg cap ORAL SCH ×3 (09:50→19:04)
[2019-01-19] MEDS: oxyCONTIN 20mg tab ORAL SCH ×2 (09:53→20:30)
[2019-01-19] MEDS: Lisinopril 10mg tab ORAL SCH (10:18)
[2019-01-19] MEDS: Acetaminophen 500mg (ES) tab ORAL SCH ×3 (11:00→19:05)
--- NOTE | 2019-01-19 20:00 | NUR ---
Receive a report from SHMUEL Grier. Done rounds.
--- NOTE | 2019-01-19 20:00 | NUR ---
HAND-OFF: Report given to Olga MI.
[2019-01-19] MEDS: Iron Sucrose 100 MG in NS 55 ML IV SCH (20:28)
--- NOTE | 2019-01-19 22:00 | NUR ---
NURSE NOTES: Pt is asleep but easily awake. Right knee op site dressing is clear. After routine pain medication, pain relieved. Call light within reach. Will continue to monitor.
[2019-01-20] VITALS: BP 93/57
[2019-01-20 04:00] VITALS: BP 92/48
[2019-01-20 07:50] VITALS: BP 104/62
--- NOTE | 2019-01-20 07:50 | NUR ---
HAND-OFF: Report given to SHMUEL Grier.
--- NOTE | 2019-01-20 08:00 | NUR ---
NURSE NOTES: Report received from [facility] [place], rounds made. Patient resting in supine position in bed. No distress on RA. Pain to right knee 6/10, will medicate as ordered. Right knee dressing CDI. Appetite good, no NV. Voids well. LW heplock intact. Call light in reach, bed in lowest position, will continue to monitor.
--- NOTE | 2019-01-20 08:04 | NUR ---
HAND-OFF: Report given to SHMUEL Grier. Pt does not show cough after medication. Will continue to monitor. Addendum: 01/20/19 at 0805 by Olga Mcdonald RN CORRECTION: INCORRECT DOCUMENTATION
[2019-01-20] MEDS: Lisinopril 10mg tab ORAL SCH ×2 (09:00→09:15)
[2019-01-20] MEDS: Acetaminophen 500mg (ES) tab ORAL SCH ×3 (09:00→18:23)
[2019-01-20] MEDS: oxyCONTIN 20mg tab ORAL SCH ×2 (09:06→20:47)
[2019-01-20] MEDS: Docusate 100mg cap ORAL SCH ×3 (09:08→18:23)
[2019-01-20] MEDS: Enoxaparin 40mg Inj SUBQ SCH (09:11)
--- NOTE | 2019-01-20 09:40 | NUR ---
NURSE NOTES: Right knee dressing changed (александр intact, xeroform in place), noted small area skin tear, no drainage or odor, surrounding skin intact (applied folded 4x4 gauze and secured with tegederm to surgical site and small skin tear). Ice pack x2 in place. Patient offered to shower today, refused, would like to shower tomorrow instead. Will endorse above to next shift.
--- NOTE | 2019-01-20 10:16 | General Surgery Progress Note ---
General Surgery-Progress Note Subjective Procedure Performed Right Total Knee Resurface Right Symptoms: improved Objective Last 24 Hour Vital Signs Date Time Temp Pulse Resp B/P (MAP) Pulse Ox O2 Delivery O2 Flow Rate FiO2 01/20/19 09:15 104/62 01/20/19 04:00 97.9 98 18 92/48 (63) 96 01/20/19 00:00 99.5 106 18 93/57 (69) 93 01/19/19 21:00 Room Air 01/19/19 20:00 98.5 107 16 102/61 (75) 98 01/19/19 16:27 101 19 108/60 (76) 97 01/19/19 12:00 98.6 107 20 104/60 (75) 99 I&O Intake and Output 01/19/19 01/20/19 18:59 06:59 Intake Total 1196 ml 500 ml Output Total 2850 ml 1200 ml Balance -1654 ml -700 ml Intake Oral 1196 ml 500 ml Output Urine Total 2850 ml 1200 ml # Voids 7 # Bowel Movements 2 Dressing: dry Wound: clean Assessment Post-op Diagnosis Patient is NOT able to discharge to home. He has No Stable housing to recover in. Needs Rehab and possible temporary housing. Request kaitlynn to insurance carrier 01-15-19 Plan Additional Comments Wound clean and dry, pulses good, tolerating CPM. Dr. Stiles following. Pending rehab or alternative living arrangements. Joseph Guerrero Jan 20, 2019 10:16
[2019-01-20 12:00] VITALS: BP 115/71
[2019-01-20 16:24] VITALS: BP 102/61
--- NOTE | 2019-01-20 18:10 | General Progress Note ---
Assessment/Plan Assessment/Plan: Right knee resurfacing arthroplasty right knee arthritis postop pain post op anemia mild renal insufficiency PLAN 1. incentive spirometry 2. Lovenox 3. PT evaluation and therapy 4. Hydration; bolus; hold antihypertensives 5. Pain management 6. discharge planned to rehab pending approval 7. iv iron Subjective Date patient seen: Jan 19, 2019 Allergies: Coded Allergies: No Known Allergies (Unverified , 01/11/19) Subjective care noted late entry stable hemodynamics Objective Last 24 Hour Vital Signs Date Time Temp Pulse Resp B/P (MAP) Pulse Ox O2 Delivery O2 Flow Rate FiO2 01/19/19 21:00 Room Air 01/19/19 20:00 98.5 107 16 102/61 (75) 98 Intake and Output 01/19/19 01/20/19 19:00 07:00 Intake Total 1196 ml 500 ml Output Total 2850 ml 1200 ml Balance -1654 ml -700 ml Intake Oral 1196 ml 500 ml Output Urine Total 2850 ml 1200 ml # Voids 7 # Bowel Movements 2 Height (Feet): 5 Height (Inches): 5.00 Weight (Pounds): 220 Objective WDWN NAD clear breath sounds bilaterally without rhonchi or wheeze [id number] without MRG NABS nontender no HSM no CCE nonfocal Raffi Stiles MD Jan 20, 2019 18:10
--- NOTE | 2019-01-20 18:11 | General Progress Note ---
Assessment/Plan Assessment/Plan: Right knee resurfacing arthroplasty right knee arthritis postop pain post op anemia mild renal insufficiency PLAN 1. incentive spirometry 2. Lovenox 3. PT evaluation and therapy 4. Hydration; bolus; hold antihypertensives 5. Pain management 6. discharge planned to rehab pending approval 7. iv iron Subjective Allergies: Coded Allergies: No Known Allergies (Unverified , 01/11/19) Subjective care noted stable hemodynamics Objective Last 24 Hour Vital Signs Date Time Temp Pulse Resp B/P (MAP) Pulse Ox O2 Delivery O2 Flow Rate FiO2 01/20/19 16:24 99.0 19 102/61 (75) 97 01/20/19 12:00 99.1 104 18 115/71 (86) 100 01/20/19 09:15 104/62 01/20/19 07:50 98.2 109 22 104/62 (76) 94 01/20/19 04:00 97.9 98 18 92/48 (63) 96 01/20/19 00:00 99.5 106 18 93/57 (69) 93 01/19/19 21:00 Room Air 01/19/19 20:00 98.5 107 16 102/61 (75) 98 Intake and Output 01/19/19 01/20/19 19:00 07:00 Intake Total 1196 ml 500 ml Output Total 2850 ml 1200 ml Balance -1654 ml -700 ml Intake Oral 1196 ml 500 ml Output Urine Total 2850 ml 1200 ml # Voids 7 # Bowel Movements 2 Height (Feet): 5 Height (Inches): 5.00 Weight (Pounds): 220 Objective WDWN NAD clear breath sounds bilaterally without rhonchi or wheeze [id number] without MRG NABS nontender no HSM no CCE nonfocal Raffi Stiles MD Jan 20, 2019 18:11
--- NOTE | 2019-01-20 19:35 | NUR ---
HAND-OFF: Report given to Jaya MI.
[2019-01-20 20:00] VITALS: BP 110/60
--- NOTE | 2019-01-20 20:00 | NUR ---
NURSE NOTES: Received patient awake in bed, no s/s of acute distress, no c/o pain at this time. Surgical dressing dry and intact, changed by AM nurse. Fall and safety precautions taken. IV access asymptomatic, dressing dry and intact.
[2019-01-20] MEDS: Iron Sucrose 100 MG in NS 55 ML IV SCH (20:47)
[2019-01-21] VITALS: BP 103/70
[2019-01-21 04:00] VITALS: BP 110/68
--- NOTE | 2019-01-21 07:46 | NUR ---
HAND-OFF: Report given to SHMUEL Keane.
--- NOTE | 2019-01-21 07:50 | NUR ---
NURSE NOTES: Pt resting in bed. Dressing R knee CDI, able to move toes, no numbness, no tingling, warm to touch. pt denies pain am. Voiding, no BM. call light within reach, bed in low position, bed alarm on. fall precaution maintained. will continue to monitor.
[2019-01-21 08:00] VITALS: BP 110/72
--- NOTE | 2019-01-21 08:21 | General Progress Note ---
Assessment/Plan Assessment/Plan: Right knee resurfacing arthroplasty right knee arthritis postop pain post op anemia mild renal insufficiency PLAN 1. incentive spirometry 2. Lovenox 3. PT evaluation and therapy 4. Hydration; bolus; hold antihypertensives 5. Pain management 6. discharge planned to rehab pending approval 7. iv iron Subjective Allergies: Coded Allergies: No Known Allergies (Unverified , 01/11/19) Subjective care noted stable hemodynamics Objective Last 24 Hour Vital Signs Date Time Temp Pulse Resp B/P (MAP) Pulse Ox O2 Delivery O2 Flow Rate FiO2 01/21/19 04:00 98.9 99 18 110/68 (82) 97 01/21/19 00:00 98.3 16 103/70 (81) 97 01/20/19 22:35 Room Air 01/20/19 21:17 99.0 01/20/19 20:00 97.7 17 110/60 (77) 97 01/20/19 16:24 99.0 19 102/61 (75) 97 01/20/19 12:00 99.1 104 18 115/71 (86) 100 01/20/19 09:15 104/62 01/20/19 09:00 Room Air Intake and Output 01/20/19 01/21/19 19:00 07:00 Intake Total 1182 ml 300 ml Output Total 1800 ml Balance -618 ml 300 ml Intake Oral 1182 ml 300 ml Output Urine Total 1800 ml # Voids 6 2 # Bowel Movements 1 1 Height (Feet): 5 Height (Inches): 5.00 Weight (Pounds): 220 Objective WDWN NAD clear breath sounds bilaterally without rhonchi or wheeze [id number] without MRG NABS nontender no HSM no CCE nonfocal Raffi Stiles MD Jan 21, 2019 08:21
[2019-01-21] MEDS: oxyCONTIN 20mg tab ORAL SCH ×2 (08:37→20:50)
[2019-01-21] MEDS: Acetaminophen 500mg (ES) tab ORAL SCH ×3 (08:38→17:04)
[2019-01-21] MEDS: Enoxaparin 40mg Inj SUBQ SCH (08:40)
[2019-01-21] MEDS: Docusate 100mg cap ORAL SCH ×3 (09:00→17:03)
[2019-01-21 12:00] VITALS: BP 101/63
[2019-01-21 16:00] VITALS: BP_SYST 102; BP_DIAS 61; BP_DIAS 73
--- NOTE | 2019-01-21 16:10 | NUR ---
DISCHARGE PLANNING PATIENT WAS REFERRED TO [facility] ~ THEY DECLINED BECAUSE OF WORKERS COMP [facility] ~ THEY DECLINED D/T NO BEDS AVAILABLE AT THIS TIME FAXED TO [facility] AND [facility] SAID THEY WILL EXCEPT ~ THEY ARE WAITING FOR A RETURN CALL FROM THE ADJUSTOR THIS FINANCIAL EXAMINER FAXED THE AUTHORIZATION PAPERWORK TO [facility] BUT THEY WANT TO SPEAK WITH THE COVERING MEDICAL RADIATION THERAPIST WHICH IS RANDY T: [phone] WAITING FOR ROOM ASSIGNMENT
--- NOTE | 2019-01-21 17:16 | NUR ---
*-* INSURANCE *-* UPDATED CLINICALS AND REVIEWS HAVE BEEN FAXED CALLED [employer] MAKER: NGUYEN HERNANDEZ P:[phone] P:[phone] F: [phone]
--- NOTE | 2019-01-21 19:30 | NUR ---
NURSE NOTES: Receive a report from SHMUEL Keane. Done rounds. Pt is awake and alert. No acute distress noted. Right knee op site is remained with gauze and tegarderm. Will continue to monitor.
[2019-01-21 20:00] VITALS: BP 114/75
[2019-01-21] MEDS: Iron Sucrose 100 MG in NS 55 ML IV SCH (20:32)
--- NOTE | 2019-01-21 22:00 | NUR ---
NURSE NOTES: Pt requests for sleeping pill. Notify Dr. Stiles and receive an order to renew Temazepam 15mg 1 cap po for insomnia. Order noted and carried out. Will continue to monitor.
[2019-01-22] VITALS: BP 116/64
[2019-01-22 04:00] VITALS: BP 118/71
--- NOTE | 2019-01-22 04:30 | NUR ---
NURSE NOTES: Done dressing change on right knee op site. No bleeding or infection signs noted. [place] intact on op site. Small round skin abrasion on right side of knee without infection signs. Apply with Xeroform, 4 of 4x4 gauze and 2 tegarderm. Denies pain and apply ice packs per pt's request. No swelling or warmth noted. Will continue to monitor.
--- NOTE | 2019-01-22 07:45 | NUR ---
HAND-OFF: Report given to SHMUEL Begum. Done rounds.
[2019-01-22 08:00] VITALS: BP 152/83
--- NOTE | 2019-01-22 08:19 | NUR ---
pt. Walking, to the restroom and just eat breakfast. AOx4. Hep lock on L wrist. NO signs of distress at this time. Bed in lowest position and locked. Call light within reach. Will continue to follow plan of care.
--- NOTE | 2019-01-22 08:30 | General Progress Note ---
Assessment/Plan Assessment/Plan: Right knee resurfacing arthroplasty right knee arthritis postop pain post op anemia mild renal insufficiency PLAN 1. incentive spirometry 2. Lovenox 3. PT evaluation and therapy 4. still no placement 5. Pain management adequate 6. discharge planned to rehab pending approval 7. iv iron as inpatient Subjective Allergies: Coded Allergies: No Known Allergies (Unverified , 01/11/19) Subjective care noted stable hemodynamics Objective Last 24 Hour Vital Signs Date Time Temp Pulse Resp B/P (MAP) Pulse Ox O2 Delivery O2 Flow Rate FiO2 01/22/19 04:00 98.4 100 17 118/71 (87) 98 01/22/19 00:00 98.3 104 17 116/64 (81) 98 01/21/19 21:00 Room Air 01/21/19 20:00 98.6 98 18 114/75 (88) 98 01/21/19 17:34 98.2 01/21/19 16:00 98.2 88 20 102/73 (83) 95 01/21/19 12:00 98.5 97 18 101/63 (76) 97 01/21/19 09:07 98.3 01/21/19 09:00 Room Air Intake and Output 01/21/19 01/22/19 19:00 07:00 Intake Total 480 ml Output Total 500 ml Balance -500 ml 480 ml Intake Oral 480 ml Output Urine Total 500 ml # Voids 1 # Bowel Movements 1 Height (Feet): 5 Height (Inches): 5.00 Weight (Pounds): 220 Objective WDWN NAD clear breath sounds bilaterally without rhonchi or wheeze [id number] without MRG NABS nontender no HSM no CCE nonfocal Raffi Stiles MD Jan 22, 2019 08:30
--- NOTE | 2019-01-22 08:50 | NUR ---
NURSE NOTES: lisinopril not in [facility] is advice.
[2019-01-22] MEDS: Acetaminophen 500mg (ES) tab ORAL SCH ×3 (08:52→18:49)
[2019-01-22] MEDS: Docusate 100mg cap ORAL SCH ×3 (08:53→18:49)
[2019-01-22] MEDS: Enoxaparin 40mg Inj SUBQ SCH (08:55)
[2019-01-22 09:28] LABS: BASOPHILS % (AUTO) 1.1 % (0.0-2.0); EOSINOPHILS % (AUTO) 3.4 % (0.0-3.0); HEMATOCRIT 26.7 % (42.0-52.0); LYMPHOCYTES % (AUTO) 12.9 % (20.0-45.0); MEAN CORPUSCULAR VOLUME 88 FL (80-99); NEUTROPHILS % (AUTO) 74.5 % (45.0-75.0); PLATELET COUNT 487 K/UL (150-450); RED BLOOD COUNT 3.02 M/UL (4.70-6.10); RED CELL DISTRIBUTION WIDTH 13.7 % (11.6-14.8); WHITE BLOOD COUNT 12.4 K/UL (4.8-10.8)
[2019-01-22] MEDS: Lisinopril 10mg tab ORAL SCH (09:55)
[2019-01-22 12:00] VITALS: BP 139/57
--- NOTE | 2019-01-22 13:17 | NUR ---
*-* INSURANCE *-* UPDATED CLINICALS HAVE BEEN FAXED CALLED COATER: NGUYEN HERNANDEZ P:[phone] P:[phone] F: [phone]
--- NOTE | 2019-01-22 14:22 | NUR ---
CASE MANAGEMENT:REVIEW 01/22/19 SI: POD #8 RT KNEE RESURFACING ARTHROPLASTY 99..6 124 19 98/59 100% ON RA IS: IV VENOFER QHS PROTONIX PO QD LOVENOX SQ QD OXYCONTIN PO Q12 : MED/SURG STATUS 3 EAST PLAN: PLAN IS FOR PATIENT TO DISCHARGE TO REHAB FACILITY RECEIVED FAX STATING PATIENT IS AUTHORIZED FOR SNF PLACEMENT ~ REFERRED TO SNF ~ SNF LEFT MULTIPLE MESSAGES FOR ADJUSTOR RANDY REGARDING AUTHORIZATION PATIENT WILL TRANSFER TO LOWER LEVEL OF CARE ONCE ADJUSTOR CALLS SNF BACK
[2019-01-22 16:00] VITALS: BP 110/68
--- NOTE | 2019-01-22 16:45 | NUR ---
P.T WEEKLY PROGRESS NOTES: PATIENT PROGRESSING SLOW HOWEVER STEADY DURING THE COURSE OF P.T SESSIONS. PATIENT PRESENTED INCREASED SWELLING AND PAIN OF THE R KNEE LIMITING MOBILITY PERFORMANCE AND SAFETY. R KNEE FLEXION ROM IS APPROX.80 DEG. WITH GENTLE PRESSURE APPLIED AT TOLERABLE END RANGE. PATIENT ABLE TO PERFORM BED MOBILITY TASKS INDEPENDENTLY WITH MOD-MIN AMT OF DIFFICULTY DEPENDING ON PAIN LEVEL. PATIENT ABLE TO PERFORM AND COMPLETE TRANSFER MOBILITY TASKS WITH SBA. PATIENT ABLE TO AMBULATE DISTANCE FROM 150-200 FEET DEPENDING ON PAIN LEVEL. PATIENT CONTINUE TO REQUIRE CUES DURING GAIT TO IMPROVE GAIT DYNAMICS AND SAFETY TO FACILITATE INDEPENDENCE IN AMBULATION. Addendum: 01/22/19 at 1657 by JANICE ANDRE PT P.T WEEKLY PROGRESS NOTES: PATIENT PROGRESSING SLOW HOWEVER STEADY DURING THE COURSE OF P.T SESSIONS. PATIENT PRESENTED INCREASED SWELLING AND PAIN OF THE R KNEE LIMITING MOBILITY PERFORMANCE AND SAFETY. R KNEE FLEXION ROM IS APPROX.80 DEG. WITH GENTLE PRESSURE APPLIED AT TOLERABLE END RANGE. PATIENT ABLE TO PERFORM BED MOBILITY TASKS INDEPENDENTLY WITH MOD-MIN AMT OF DIFFICULTY DEPENDING ON PAIN LEVEL. PATIENT ABLE TO PERFORM AND COMPLETE TRANSFER MOBILITY TASKS WITH SBA. PATIENT ABLE TO AMBULATE DISTANCE FROM 150-200 FEET DEPENDING ON PAIN LEVEL. PATIENT CONTINUE TO REQUIRE CUES DURING GAIT TO IMPROVE GAIT DYNAMICS AND SAFETY TO FACILITATE INDEPENDENCE IN AMBULATION. WILL CONTINUE WITH POC WITH PROGRESSION OF ACTIVITIES.
--- NOTE | 2019-01-22 19:40 | NUR ---
HAND-OFF: Report given to Tawanna, pt in stable condition, endorsed to nurse that DC paperwork was done by mistake for this pt. She will communicate it to morning nurse on report tomorrow.
--- NOTE | 2019-01-22 19:41 | NUR ---
NURSE NOTES: Received report & pt from SHMUEL Begum. Pt lying in bed, a&ox4, in room air. No s/s of acute distress & no c/o pain at this time. Surgical dressing C/D/I. Pt on CPM and tolerating well. Will remove CPM tonight. IV site intact & S/L'd. Bed in lowest position, call light within reach. Will continue to monitor.
[2019-01-22 20:00] VITALS: BP 98/64
[2019-01-23] VITALS: BP 96/63
--- NOTE | 2019-01-23 05:00 | NUR ---
NURSE NOTES: Dressing changed. Pt tolerated very well. No bleeding noted.
--- NOTE | 2019-01-23 07:19 | NUR ---
HAND-OFF: Report given to SHMUEL Roque. Pt in stable condition.
--- NOTE | 2019-01-23 07:45 | NUR ---
NURSE NOTES: Received report from Tawanna RN. patient is awake alert and oriented, no acute distress noted, reporting pain 5/10 in left knee, requesting pain medication, will administer scheduled Tylenol as ordered. Right knee dressing clean, dry, intact. IV intact. Patient updated on plan of care for the day. Side rails upx2, bed low and locked, call light in reach. Will continue to monitor.
[2019-01-23 08:00] VITALS: BP 89/56
[2019-01-23 08:17] VITALS: BP 96/64
[2019-01-23] MEDS: Acetaminophen 500mg (ES) tab ORAL SCH ×3 (08:30→17:36)
[2019-01-23] MEDS: Docusate 100mg cap ORAL SCH ×3 (08:30→17:35)
[2019-01-23] MEDS: Enoxaparin 40mg Inj SUBQ SCH (08:32)
[2019-01-23] MEDS: Lisinopril 10mg tab ORAL SCH (08:35)
--- NOTE | 2019-01-23 10:45 | NUR ---
CASE MANAGEMENT:REVIEW 01/23/19 SI: POD #9 RT KNEE RESURFACING ARTHROPLASTY 99.0 115 18 89/56 100% on ra IS: IV VENOFER QHS PROTONIX PO QD LOVENOX SQ QD TYLENOL PO TID LISINOPRIL PO QD ~ HELD : MED/SURG STATUS 3 EAST PLAN: PATIENT HAS BEEN ACCEPTED TO [facility] IS WAITING TO RECEIVE AUTHORIZATION FROM [employer] ~ RANDY
--- NOTE | 2019-01-23 11:00 | General Surgery Progress Note ---
General Surgery-Progress Note Subjective Procedure Performed Right Total Knee Resurface Right Symptoms: improved Objective Last 24 Hour Vital Signs Date Time Temp Pulse Resp B/P (MAP) Pulse Ox O2 Delivery O2 Flow Rate FiO2 01/23/19 09:00 Room Air 01/23/19 08:35 96/64 01/23/19 08:17 115 96/64 (75) 01/23/19 08:00 99.0 119 18 89/56 (67) 100 01/23/19 00:00 98.0 109 18 96/63 (74) 99 01/22/19 21:00 Room Air 01/22/19 20:00 99.1 105 18 98/64 (75) 95 01/22/19 16:00 98.6 92 18 110/68 (82) 99 01/22/19 12:00 98.1 92 20 139/57 (84) 98 I&O Intake and Output 01/22/19 01/23/19 19:00 07:00 Intake Total 650 ml 480 ml Balance 650 ml 480 ml Intake Oral 650 ml 480 ml # Voids 3 2 # Bowel Movements 1 Dressing: dry Wound: clean Additional Comments Patient is stable and may transfer to Rehab when carrier releases authorization. 12 day rehab was authorized then put on hold by carrier. Dr. Stiles following. Assessment Post-op Diagnosis Patient is NOT able to discharge to home. He has No Stable housing to recover in. Needs Rehab and possible temporary housing. Request kaitlynn to insurance carrier [phone]- Joseph Guerrero Jan 23, 2019 11:00
[2019-01-23 12:00] VITALS: BP 92/60
--- NOTE | 2019-01-23 12:40 | NUR ---
NURSE NOTES: Received call from Dr. Stiles, per report from MD patient has been calling office to report he is not getting pain medication. Patient has not requested any pain medication aside from scheduled Tylenol today. Dr. Stiles gave order for PATRICIA Brock, order entered. Will continue to monitor.
--- NOTE | 2019-01-23 12:41 | NUR ---
DISCHARGE PLANNING RFA WAS COMPLETED AND FAXED TO [employer] ON MONDAY WRITTEN AUTHORIZATION FOR SNF WAS FAXED TO [facility] AT 7PM ON MONDAY PATIENT WAS REFERRED TO JAIR CISNEROS ON MONDAY ALONG WITH THE WRITTEN AUTH JAIR CISNEROS CONTACTED RANDY RIVERO, WHO SAID HE HAD TO OBTAIN ADDITIONAL FINANCE AUTHORIZATION FROM ANOTHER DEPARTMENT. WE ARE CURRENTLY WAITING FOR JAIR CISNEROS TO RECEIVE FINANCIAL AUTHORIZATION FROM [employer] [facility] ONCE AUTHORIZATION HAS BEEN RECEIVED WE WILL TRANSFER TO [facility]
[2019-01-23] MEDS: HYDROcodone/Acetamin 5/325 tab ORAL PRN ×3 (12:55→23:59)
--- NOTE | 2019-01-23 14:46 | NUR ---
*-* INSURANCE *-* UPDATED CLINICALS HAVE BEEN FAXED CALLED CONTRACT ENGINEER: NGUYEN HERNANDEZ P:[phone] P:[phone] F: [phone]
[2019-01-23 16:00] VITALS: BP 126/61
--- NOTE | 2019-01-23 16:12 | General Progress Note ---
Assessment/Plan Assessment/Plan: Right knee resurfacing arthroplasty right knee arthritis postop pain post op anemia mild renal insufficiency PLAN 1. incentive spirometry 2. Lovenox 3. PT evaluation and therapy 4. still no placement 5. Pain management adequate 6. discharge planned to rehab pending approval 7. iv iron as inpatient Subjective Allergies: Coded Allergies: No Known Allergies (Unverified , 01/11/19) Subjective care noted stable hemodynamics Objective Last 24 Hour Vital Signs Date Time Temp Pulse Resp B/P (MAP) Pulse Ox O2 Delivery O2 Flow Rate FiO2 01/23/19 12:00 98.6 102 19 92/60 (71) 100 01/23/19 09:00 Room Air 01/23/19 08:35 96/64 01/23/19 08:17 115 96/64 (75) 01/23/19 08:00 99.0 119 18 89/56 (67) 100 01/23/19 00:00 98.0 109 18 96/63 (74) 99 01/22/19 21:00 Room Air 01/22/19 20:00 99.1 105 18 98/64 (75) 95 Intake and Output 01/22/19 01/23/19 19:00 07:00 Intake Total 650 ml 480 ml Balance 650 ml 480 ml Intake Oral 650 ml 480 ml # Voids 3 2 # Bowel Movements 1 Height (Feet): 5 Height (Inches): 5.00 Weight (Pounds): 213 Objective WDWN NAD clear breath sounds bilaterally without rhonchi or wheeze [id number] without MRG NABS nontender no HSM no CCE nonfocal Raffi Stiles MD Jan 23, 2019 16:12
--- NOTE | 2019-01-23 19:23 | NUR ---
HAND-OFF: Report given to Tawanna MI. Patient is in stable condition.
--- NOTE | 2019-01-23 19:30 | NUR ---
NURSE NOTES: Patient awake in bed, alert and oriented x4, not in severe pain at this time. Instructed the use of call light. Call light and needs in reach. Bed in lowest position and lock engaged. Will continue to monitor.
[2019-01-23 20:00] VITALS: BP 133/74
[2019-01-24] VITALS: BP 107/64
--- NOTE | 2019-01-24 02:43 | NUR ---
NURSE NOTES: Received report & pt from SHMUEL Stacy for continuity of care. Pt lying in bed, a&ox4, in room air. No s/s of acute distress & no c/o pain at this time. Surgical dressing C/D/I. IV site intact & S/L'd. Bed in lowest position, call light within reach. Will continue to monitor.
--- NOTE | 2019-01-24 02:52 | NUR ---
HAND-OFF: Report given to SHMUEL Stacy.
[2019-01-24] MEDS: HYDROcodone/Acetamin 5/325 tab ORAL PRN ×3 (04:08→14:28)
[2019-01-24 04:45] VITALS: BP 112/53
--- NOTE | 2019-01-24 07:30 | NUR ---
HAND-OFF: Report given to SHMUEL Carbajal. Pt in stable condition. Rounds done.
[2019-01-24 08:00] VITALS: BP 110/73
--- NOTE | 2019-01-24 09:12 | General Progress Note ---
Assessment/Plan Assessment/Plan: Right knee resurfacing arthroplasty right knee arthritis postop pain post op anemia mild renal insufficiency PLAN 1. incentive spirometry 2. Lovenox 3. PT evaluation and therapy 4. still no placement 5. Pain management adequate 6. discharge planned to rehab pending approval 7. iv iron discontinued Subjective Allergies: Coded Allergies: No Known Allergies (Unverified , 01/11/19) Subjective care noted stable hemodynamics Objective Last 24 Hour Vital Signs Date Time Temp Pulse Resp B/P (MAP) Pulse Ox O2 Delivery O2 Flow Rate FiO2 01/24/19 08:00 98.1 67 19 110/73 (85) 96 01/24/19 04:45 98.3 90 16 112/53 (72) 96 01/24/19 00:00 99.0 95 20 107/64 (78) 99 01/23/19 21:00 Room Air 01/23/19 20:00 97.4 95 20 133/74 (93) 99 01/23/19 16:00 98.1 116 18 126/61 (82) 100 01/23/19 12:00 98.6 102 19 92/60 (71) 100 Intake and Output 01/23/19 01/24/19 19:00 07:00 Intake Total 2220 ml Output Total 1200 ml Balance 1020 ml Intake Oral 2220 ml Output Urine Total 1200 ml # Voids 3 # Bowel Movements 1 Height (Feet): 5 Height (Inches): 5.00 Weight (Pounds): 213 Objective WDWN NAD clear breath sounds bilaterally without rhonchi or wheeze [id number] without MRG NABS nontender no HSM no CCE nonfocal Raffi Stiles MD Jan 24, 2019 09:12
[2019-01-24] MEDS: Docusate 100mg cap ORAL SCH ×3 (09:32→17:17)
[2019-01-24] MEDS: Lisinopril 10mg tab ORAL SCH (09:32)
[2019-01-24] MEDS: Acetaminophen 500mg (ES) tab ORAL SCH ×3 (09:33→17:18)
[2019-01-24] MEDS: Enoxaparin 40mg Inj SUBQ SCH (09:37)
--- NOTE | 2019-01-24 10:05 | NUR ---
*-* INSURANCE *-* UPDATED CLINICALS HAVE BEEN FAXED CALLED COCON[employer] JELLY ROLLER: NGUYEN HERNANDEZ P:[phone] P:[phone] F: [phone]
--- NOTE | 2019-01-24 10:15 | NUR ---
CASE MANAGEMENT:REVIEW 01/24/19 SI: POD #10 RT KNEE RESURFACING ARTHROPLASTY 98.1 67 19 110/73 96% ON RA IS: NORCO PO Q4HRS PRN LISINOPRIL PO QD PROTONIX PO QD LOVENOX SQ QD TYLENOL PO TID : MED/SURG STATUS 3 EAST PLAN: PATIENT HAS BEEN ACCEPTED TO [facility] IS WAITING TO RECEIVE AUTHORIZATION FROM [employer] ENGINEEREDIS PADILLA
--- NOTE | 2019-01-24 10:19 | NUR ---
DISCHARGE PLANNING STATISTICAL MACHINE MECHANIC CALLED AND LEFT [facility] RANDY RIVERO T: [phone] REQUESTING STATUS OF AUTHORIZATION FOR SNF PLACEMENT AWAIT RETURN CALL
[2019-01-24 11:39] VITALS: BP 112/73
--- NOTE | 2019-01-24 12:20 | NUR ---
CHARGE NURSE NOTES: PATIENT IS INSISTING ON LEAVING HOSPITAL RIGHT AWAY, PATIENT STATED HE WANTS TO DRIVE HIMSELF, EDUCATED PATIENT HE CANNOT DRIVE HIMSELF BECAUSE HE HAD KNEE SURGERY AND THE DOCTOR HAS NOT CLEARED HIM TO DRIVE YET, ALSO INFORMED PATIENT THAT IF HE GOES TO [facility] HE CANNOT DRIVE HIMSELF THERE, HE MUST BE TRANSPORTED VIA BLS TRANSPORT. PER ROAD PASSENGER FIRER MIMI, AUTHORIZATION FOR [facility] HAS NOT GONE THROUGH YET. PATIENT PROVIDED ADDRESS AND STATED '"I CAN GO HERE", EDUCATED PATIENT THAT THERE IS NOT YET A DISCHARGE ORDER. CALLED NGHIA NDIAYE AND INFORMED PA OF CURRENT SITUATION, INFORMED PA THAT PATIENT PROVIDED AN ADDRESS, NGHIA COLON STATED THAT PATIENT CANNOT BE DISCHARGED HOME, HE MUST GO FOR ACUTE REHAB. SENTHIL COLON STATED THAT IF PATIENT WANTS TO LEAVE RIGHT NOW HE MUST GO AMA. INFORMED PATIENT OF THIS AND PATIENT BECAME IRRITABLE AND STATED HE WILL CALL DOCTORS OFFICE HIMSELF. PRIMARY NURSE NIRU UPDATED AND AWARE OF SITUATION.
--- NOTE | 2019-01-24 13:35 | NUR ---
CHARGE NURSE NOTES: RECEIVED CALL FROM SENTHIL COLON. PER SENTHIL COLON MECHE [facility]NER[facility] HAS AUTHORIZED PATIENT TO GO TO FACILITY. SENTHIL STATED THAT IF PATIENT AGREES TO BE TRANSPORTED VIA BLS THEN PATIENT MAY BE DISCHARGED, IF PATIENT REFUSES TRANSPORT AND WANTS TO DRIVE HE MUST SIGN AMA. CALLED MIMI COLLISION WORKER FOR STATUS UPDATE ON BED AT FACILITY, NO ANSWER FROM COLLISION WORKER, WILL ATTEMPT AGAIN. PRIMARY NURSE UPDATED.
--- NOTE | 2019-01-24 15:06 | NUR ---
CHARGE NURSE NOTES: PER FOOD COUNSELOR MIMI, PATIENT IS AUTHORIZED TO GO TO [facility] AND HAS BED ASSIGNMENT, FOOD COUNSELOR TO ARRANGE TRANSPORT FOR APPROXIMATELY 1700. SPOKE WITH PATIENT AND PATIENT IS AGREEABLE TO PLAN OF CARE AND AGREES TO GO VIA AMBULANCE ORDERED BY SENTHIL COLON. ENTERED DISCHARGE ORDER. UPDATED PRIMARY NURSE NIRU.
[2019-01-24 16:00] VITALS: BP 116/74
--- NOTE | 2019-01-24 17:36 | NUR ---
NURSE NOTES: report given to Mar MI @ [facility].IV cath removed per protocol.
--- NOTE | 2019-01-24 18:50 | NUR ---
NURSE NOTES: patient discharged with all his belonging as ordered.report given to ambulance personal. i called next of kin as noted in face sheet .However, she did not pick and shovel man.report given to Mar MI @ [facility] as noted earlier.
--- NOTE | 2019-01-25 12:00 | NUR ---
*-* INSURANCE *-* UPDATED CLINICALS HAVE BEEN FAXED CALLED NUTRITION INTERN: NGUYEN HERNANDEZ P:[phone] P:[phone] F: [phone]
--- NOTE | 2019-01-28 08:57 | Discharge Summary ---
Discharge Summary Hospital Course Date of Admission Jan 14, 2019 at 06:33 Date of Discharge Jan 24, 2019 at 18:32 Admitting Diagnosis Right knee arthritis Reason for Hospitalization: elective surgery CROW Thurston is a 53 year old male who was admitted on Jan 14, 2019 at 06:33 for Right Knee traumatic arthritis. Patient was admitted for elective surgery. Consultations Dr Stiles -IM Procedures s/p 01/14/[address] Collado Right knee resurfacing arthroplasty Hospital Course status post surgery initially IV fluids s/p perioperative antibiotics neurovascular status closely monitored, stable incision clean , dry, and intact pain management addressed , and pain was eventually controlled hemodynamically stable ambulated with PT fall precautions maintained DVT prophylaxis provided use of incentive spirometry was encouraged while in the bed tolerated diet , IV fluids discontinued GI prophylaxis provided antiemetics were on board as needed blood pressure was managed with Lisinopril and remained stable voided freely patient developed postoperative anemia patient was on IV Venofer hemoglobin and hematocrit were closely monitored with goal to keep hemoglobin above 7 prior to discharge hemoglobin 9, hematocrit 26.7 bowel regimen instituted transfer was arranged to [facility] facility for continuation of care patient was stable for discharge discharge instructions provided follow up with surgeon as outpatient as advised by surgeon FINAL DIAGNOSES 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 s/p Right Total Knee Resurfacing Postoperative pain Postoperative anemia Hypertension Discharge Medications Continued Medications: Hydrocodone Bit/Acetaminophen 5-325* (Proctor 5-325*) 1 Each Tablet 1 TAB ORAL Q4H PRN for For Pain, #10 TAB 0 Refills (This prescription has been renewed) Lisinopril* (Lisinopril*) 10 Mg Tablet 10 MG ORAL DAILY, TAB (This prescription has been renewed) Omeprazole (Omeprazole) 40 Mg Capsule. 40 MG ORAL DAILY, CAP (This prescription has been renewed) Discharge Condition Upon Discharge: stable Discharge Disposition Patient was discharged to the [facility] facility for [facility] of care /[facility]. Discharge Instructions Discharge Instructions Special Instructions I have been assigned to complete a D/C Summary on this account. I was not involved in the patient management Cinthia Adrian NP Jan 28, 2019 08:57
== END 2019-01-24 18:32 | DRG 470 ==
LOC: SDSOVERFLO 06:33 → 3E 13:05
PROC: 0SRC0J9 Replacement of Right Knee Joint with Synthetic Substitute, Cemented, Open Approach (ICD-10-PCS; principal; 2019-01-14 07:30)
DX: M12.561 Traumatic arthropathy, right knee (principal); D64.9 Anemia, unspecified; N28.9 Disorder of kidney and ureter, unspecified; I10 Essential (primary) hypertension
CPT/HCPCS: 36415; 80048; 80053; 82728; 83540; 83550; 84443; 85025; 85610; 85730; 86705; 86709; 86803; 86850; 86900; 86901; 87081; 87340; 94003; 94150; J2250; J2405